=== PATIENT | male | born 1965 | race African-American/Black ===

== ENCOUNTER → 2017-11-21 | Outpatient (CLI) | payer MEDICAID | END | disposition home or self-care (01) | LOC: PCVCIMAG 09:40 | DX: I48.0 Paroxysmal atrial fibrillation (principal); I05.8 Other rheumatic mitral valve diseases; R94.31 Abnormal electrocardiogram [ECG] [EKG]; Z98.890 Other specified postprocedural states; Z79.82 Long term (current) use of aspirin; Z79.899 Other long term (current) drug therapy | CPT/HCPCS: 36415; 93005; 93306; G0463 ==

== ENCOUNTER → 2017-12-05 | Outpatient (CLI) | payer MEDICAID | END | disposition home or self-care (01) | LOC: PCVCIMAG 09:32 | DX: R94.5 Abnormal results of liver function studies (principal) | CPT/HCPCS: 76700 ==

== ENCOUNTER → 2018-02-22 | Outpatient (CLI) | payer MEDICAID | END | disposition home or self-care (01) | LOC: PCVCCLINIC 13:26 | DX: E78.5 Hyperlipidemia, unspecified (principal); I05.8 Other rheumatic mitral valve diseases; R94.31 Abnormal electrocardiogram [ECG] [EKG]; Z98.890 Other specified postprocedural states; Z86.79 Personal history of other diseases of the circulatory system; Z79.899 Other long term (current) drug therapy; Z79.82 Long term (current) use of aspirin; Z88.0 Allergy status to penicillin; Z88.8 Allergy status to other drugs, medicaments and biological substances | CPT/HCPCS: 80061; 93005; G0463 ==

== ENCOUNTER → 2018-06-01 | Outpatient (CLI) | payer MEDICAID | END | disposition home or self-care (01) | LOC: PCVCCLINIC 11:23 | PROVIDERS: ATTEND Internal Medicine | DX: I05.8 Other rheumatic mitral valve diseases (principal); E78.5 Hyperlipidemia, unspecified; I48.0 Paroxysmal atrial fibrillation; Z98.890 Other specified postprocedural states; Z79.82 Long term (current) use of aspirin; Z79.899 Other long term (current) drug therapy; Z88.0 Allergy status to penicillin; Z91.013 Allergy to seafood; Z91.018 Allergy to other foods | CPT/HCPCS: 93005; G0463 ==